=== PATIENT | male | born 1970 | race Caucasian/White ===

== ENCOUNTER 2018-01-27 17:03 | Emergency (ER) | payer OTHER ==
[~2018-01-27] VITALS: Ht 172.7 cm; Wt 88.0 kg
[~2018-01-27 17:03] MED LIST: CYCLOBENZAPRINE10 MG PO; IBUPROFEN600 MG PO; LORTAB 5-325 M1 EACH PO; MEDROL DOSEPAK4 MG PO; NEURONTIN300 MG PO; PRILOSEC40 MG PO
[2018-01-27 18:01] LABS: HEMATOCRIT 45.4 % (38.0-50.0); HEMOGLOBIN 16.4 G/DL (12.5-16.6); MCH 33.5 PG (29.0-34.0); MCHC 36.1 G/DL (30.0-36.0); MCV 92.8 FL (86-99); PLATELET COUNT 161 K/uL (156-360); RBC DIS.WIDTH-CV 12.1 % (11.8-14.6); RBC DIS.WIDTH-SD 41.7 % (39-53); RED BLOOD COUNT 4.89 M/uL (4.00-5.50); WHITE BLOOD COUNT 4.7 K/uL (4.1-10.2)
[2018-01-27 18:20] LABS: CHLORIDE 102 mEq/L (99-109); POTASSIUM 3.9 mEq/L (3.7-5.4); SODIUM 139 mEq/L (136-147)
[2018-01-27 18:22] LABS: GLUCOSE 91 mg/dL (70-99)
[2018-01-27 18:25] LABS: APPEARANCE CLEAR ((CLEAR)); BILIRUBIN NEGATIVE; BLOOD NEGATIVE; COLOR YELLOW ((YELLOW)); GLUCOSE (STRIP) NEGATIVE; KETONES NEGATIVE; LEUKOCYTES NEGATIVE; NITRITE NEGATIVE; PROTEIN (STRIP) NEGATIVE; SPECIFIC GRAVITY 1.008 (1.000-1.030); UROBILINOGEN 0.2 MG/DL (0.2-1.0)
[2018-01-27 18:26] LABS: CREATININE 0.9 mg/dL (0.6-1.3); GFR ESTIMATE (CALCULATED) > 59 mL/min/ (58.99-99999)
[2018-01-27 18:27] LABS: UREA NITROGEN (BUN) 8 mg/dL (9-23)
[2018-01-27 18:28] LABS: TROP-I INTERPRETATION NEGATIVE; TROPONIN-I < 0.01 ng/mL (0.0-0.30)
[2018-01-27] MEDS ORDERED: ZOFRAN ODT4 MG PO (22:06)
[2018-01-27] MEDS ORDERED: DIOVAN160 MG PO (22:06)
[2018-01-27] MEDS ORDERED: BENTYL10 MG PO (22:06)
[2018-01-27 22:24] VITALS: BP 148/91
== END 2018-01-27 22:25 | disposition home or self-care (01) ==
LOC: EME 17:03
DX: K57.30 Diverticulosis of large intestine without perforation or abscess without bleeding (principal); R11.0 Nausea; I10 Essential (primary) hypertension; M54.9 Dorsalgia, unspecified; R20.8 Other disturbances of skin sensation; Z87.891 Personal history of nicotine dependence
CPT/HCPCS: 71046; 74177; 80048; 81003; 84484; 85027; 93005; 99281; 99284; J1885; J3010; J7030